=== PATIENT | male | born 1985 | race Caucasian/White ===

== ENCOUNTER 2017-10-27 21:38 | Emergency (ER) | payer BC ==
--- NOTE | 2017-10-27 21:45 | PDOC ---
Rapid Medical Evaluation Chief Complaint: Psychiatric Time Seen by Provider: 10/27/17 21:43 Medical Evaluation: 10/27/17 21:43 I have performed a brief in person evaluation of this patient. The patient presents with a CC of: Paresthesia HPI: Pt is a 31 YO male who states that earlier today he began with paresthesia to the right side of his neck and to his UE. Pt denies hx of anxiety. He denies slurred speech. He denies UE weakness. PE: Skin: Clear Heart: RRR Lungs: Clear MS: Moves all extremities without difficulty Neuro: Appropriate affect, smile symmetric, negative Rhomberg Psych: appropriate affect I have ordered: no labs ordered at this time as I feel this may be more anxiety related. The patient will proceed to the ED for further evaluation. Discharge Disposition - Diagnosis Anxiety - Referrals - Patient Instructions - Post Discharge Activity
[2017-10-27 21:48] VITALS: BP 140/82; PULSE 80; TEMP 98.5; BMI 32.8
[2017-10-27] MEDS ORDERED: KETOROLAC TROMETHAMINE 30 MG/1 ML VIAL IM ONE (22:57)
[2017-10-27] MEDS ORDERED: KETOROLAC TROMETHAMINE 30 MG/1 ML VIAL ONE (22:57)
--- NOTE | 2017-10-27 23:00 | PDOC ---
History of Present Illness - General Chief Complaint: Psychiatric Stated Complaint: NUMBNESS Time Seen by Provider: 10/27/17 21:43 Past History - Past Medical History Allergies/Adverse Reactions: Allergies Allergy/AdvReac Type Severity Reaction Status Date / Time No Known Allergies Allergy Verified 10/27/17 21:48 Home Medications: Ambulatory Orders Ibuprofen 800 mg PO TID #30 tablet 10/27/17 COPD: No - Suicide/Smoking/Psychosocial Hx Smoking History: Never smoked Have you smoked in the past 12 months: No Information on smoking cessation initiated: No Hx Alcohol Use: No Drug/Substance Use Hx: No Substance Use Type: None *Physical Exam - Vital Signs Last Vital Signs Temp Pulse Resp BP Pulse Ox 98.5 F 80 19 140/82 98 10/27/17 21:45 10/27/17 21:45 10/27/17 21:45 10/27/17 21:45 10/27/17 21:45 *DC/Admit/Observation/Transfer Diagnosis at time of Disposition: Anxiety, Strain of neck muscle - Discharge Dispostion Disposition: HOME Condition at time of disposition: Stable Decision to Admit order: No - Referrals Referrals: Kodak Grady MD [Staff Physician] - - Patient Instructions Printed Discharge Instructions: DI for Neck Pain Additional Instructions: You most likely have a muscle strain in your neck Please take the Motrin 800mg every 8 hours for one week to help with your symptoms Avoid lifting heavy objects (more than 15 pounds) for one week so your neck can heal Follow up with orthopedics if your symptoms do not improve Follow up with your primary care doctor as well Return to the ED for any new or worsening symptoms - Post Discharge Activity
== END 2017-10-27 23:35 | disposition home or self-care (01) ==
LOC: JERFT 21:38
PROC: 3E0233Z Introduction of Anti-inflammatory into Muscle, Percutaneous Approach (ICD-10-PCS; principal; 2017-10-27)
DX: F41.9 Anxiety disorder, unspecified (principal); S16.1XXA Strain of muscle, fascia and tendon at neck level, initial encounter; X58.XXXA Exposure to other specified factors, initial encounter; Y93.89 Activity, other specified; Y92.89 Other specified places as the place of occurrence of the external cause; Y99.8 Other external cause status
CPT/HCPCS: 99281-25

== ENCOUNTER 2018-03-11 19:54 | Emergency (ER) | payer OTHER, BC ==
[2018-03-11 20:09] VITALS: BP 143/77; PULSE 84; TEMP 98.3; BMI 31.3
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
== END 2018-03-11 21:06 | disposition home or self-care (01) ==
LOC: JER 19:54 → JERFT 19:54
DX: M54.2 Cervicalgia (principal); V43.52XA Car driver injured in collision with other type car in traffic accident, initial encounter; Y93.89 Activity, other specified; Y92.410 Unspecified street and highway as the place of occurrence of the external cause
CPT/HCPCS: 99281-25